=== PATIENT | male | born 1990 | race African-American/Black ===

== ENCOUNTER 2017-08-24 10:38 | Inpatient (IN) | payer SELFPAY ==
[2017-08-24] MEDS ORDERED: Diltiazem HCl 125 MG, Admixture Fee 1 EACH in Sodium Chloride 0.9% 100 ML SLOW IVP SCH (11:45)
[2017-08-24 11:47] LABS: Troponin I 0.025 ng/mL (< 0.028)
--- NOTE | 2017-08-24 12:52 | HP ---
PRIMARY CARE PHYSICIAN: [facility]. REASON FOR ADMISSION: New onset atrial fibrillation with rapid ventricular response, transfer from [facility]. HISTORY OF PRESENT ILLNESS: A 27-year-old -Cub[place] male with no significant medical history who woke up this morning, at that time he was feeling of uneasiness in his chest. He was having palpitations. Even after this, he was able to go to work, but at workplace, he was not feeling good. He was having dizziness, palpitation ongoing and shortness of breath. Patient initially thought that his symptoms could be related with acid reflux and that is why he took Tums and aspirin, but that did not help his symptoms and he was having persistent palpitation and that is why he went to [facility] for evaluation. At [facility], his pulse was 156, irregular. He was found with atrial fibrillation with rapid ventricular response. He was given aspirin and Cardizem bolus and subsequently Cardizem drip was started. With this therapy, his rate was under control, but he was still in atrial fibrillation. The patient was transferred to our hospital for further evaluation and treatment. This patient denies any excessive caffeinated products. He denies any drug abuse. He denies any syncope. He was feeling of uneasiness and vague discomfort in his chest, but he denies any anginal pain. He never had this type of problem in past. He never had any exertional chest pain, palpitation or shortness of breath. He denies any fever. He denies any thyroid disorder. PAST MEDICAL HISTORY: Reviewed and negative. PAST SURGICAL HISTORY: The patient had right leg surgery. PAST PSYCHIATRIC HISTORY: Reviewed and negative. SOCIAL HISTORY: Patient denies any tobacco, alcohol or illicit drug abuse. He is working in oil field. He is doing regular exercise at home. FAMILY HISTORY: His father had heart attack and from heart related problem. No family history of cancer or stroke. ALLERGIES: No known drug allergies. CURRENT HOME MEDICATIONS: The patient is not taking any prescribed or non- prescribed medication. EMERGENCY ROOM COURSE: Patient was given aspirin 325 mg, Cardizem bolus 25 mg and then Cardizem drip was started at [facility]. REVIEW OF SYSTEMS: Please see my HPI for pertinent positives and negatives. All other review of system reviewed and negative except that mentioned in the HPI. Constitutional: Weight loss or gain, ability to conduct usual activities. Skin: Rash, itching. Eyes: Double vision, pain. ENT/Mouth: Nose bleeding, neck stiffness, pain, tenderness. Cardiovascular: Palpitations, dyspnea on exertion, orthopnea. Respiratory: Shortness of breath, wheezing, cough, hemoptysis, fever or night sweats. Gastrointestinal: Poor appetite, abdominal pain, heartburn, nausea, vomiting, constipation, or diarrhea. Genitourinary: Urgency, frequency, dysuria, nocturia. Musculoskeletal: Pain, swelling. Neurologic/Psychiatric: Anxiety, depression. Allergy/Immunologic: Skin rash, bleeding tendency. PHYSICAL EXAMINATION: VITAL SIGNS: On arrival here in our emergency room, blood pressure 152/92, pulse 88 irregular, pulse was 156, irregular at [facility], respiratory rate 18, saturation 100% on room air, weight 93.8 kilograms. GENERAL: Patient is currently alert, awake, in no obvious acute distress. HEENT: Normocephalic, atraumatic. Eyes: Pupils round, reactive to light. Extraocular muscle intact. ENT: Oropharynx within normal limits. Moist mucous membranes. No oral lesions. No pharyngeal erythema. No exudate. NECK: Supple. Range of motion is normal. No meningeal signs of irritation. LUNGS: Clear to auscultation without any rhonchi or rales. CARDIAC: S1, S2 irregularly irregular. No murmur. No gallop. No rub. ABDOMEN: Obesity present. Bowel sounds present, nontender, nondistended. No organomegaly. No mass. No suprapubic tenderness. BACK EXAMINATION: Unremarkable. No CVA tenderness. EXTREMITIES: Upper extremity passive movement of all joints are normal. Lower extremities: No edema. Good peripheral pulsation. SKIN: No skin rash. HEMATOLOGICAL SYSTEM: No lymphadenopathy. NEUROLOGIC: Nonfocal examination. The patient moves all 4 limbs. Plantar bilateral flexor. PSYCHIATRIC: Normal affect. SIGNIFICANT LABS: 1. EKG initially showing atrial fibrillation with RVR and subsequently currently EKG showing atrial fibrillation with controlled ventricular response. 2. CBC: WBC 4.3, hemoglobin 16.1, platelets 207,000 D-dimer less than 0.27. BMP shows sodium 139, potassium 3.5, chloride 104, carbon dioxide 27, BUN 16, creatinine 1.14, glucose 86, calcium 9.9. 3. LFT: AST 19, ALT 22, alkaline phosphatase 51, albumin 4.2. Cardiac enzymes negative x2. BNP less than 10. TSH 1.55. Urine drug screen negative. ASSESSMENT AND PLAN: 1. New onset atrial fibrillation with rapid ventricular response. At this point, etiology unable to determine. His urine drug screen is clear. His TSH is normal. This patient does not have any excessive caffeinated products. He does not have any anginal pain. The patient also does not have any high risk factors for CVA. He does not have any hypertension and diabetes, TIA or stroke. At this point, we will keep this patient in the hospital for admission. We will consult Cardiology. We will obtain echocardiography to assess ejection fraction and other structural abnormality. We will continue the Cardizem drip. We are hoping that he will spontaneously convert back to normal sinus rhythm. If he does not, then he may need a cardioversion. While in hospital, we will continue with Lovenox 1 mg per kg subcutaneous twice daily , but upon discharge based on CHADS2 score, he will need only aspirin therapy. If he converts back to normal sinus rhythm, then we will consider beta-leland or calcium channel leland therapy to prevent atrial fibrillation. This patient will need outpatient followup with Cardiology as well. 2. Obesity. Dietary education given. Healthy lifestyle measures discussed with the patient. 3. Deep venous thrombosis prophylaxis. Patient will be kept on Lovenox 1 mg per kg subcu twice daily. 4. Gastrointestinal prophylaxis. Pepcid 20 mg p.o. b.i.d. 5. Code status: The patient is FULL CODE. Patient does not have any surrogate decision maker. Disposition plan based on clinical course and cardiology recommendation. As this patient also has negative D-dimer, that is why the possibility of thromboembolic disorder is extremely unlikely and will also do serial cardiac enzymes to rule out acute coronary syndrome. He may need a stress test before discharge for ischemic evaluation if needed, and that decision will defer to Cardiology. KD
[2017-08-24] MEDS ORDERED: Enoxaparin Sodium 100 MG/ML SYRINGE ONE (12:55)
[2017-08-24] MEDS ORDERED: Loperamide HCl 2 MG CAP PO PRN (13:24)
[2017-08-24] MEDS ORDERED: Senokot 8.6 MG TAB PO PRN (13:24)
[2017-08-24] MEDS ORDERED: HYDROcodone/Acetaminophen 5/325 mg Tablet PO PRN (13:24)
[2017-08-24] MEDS ORDERED: Eucerin (Mineral Oil/Petrolatum,White) 30 gm Jar TOP PRN (13:24)
[2017-08-24] MEDS ORDERED: Sodium Chloride 0.65% Nasal 44 ML BOT EA NARE PRN (13:24)
[2017-08-24] MEDS ORDERED: Ondansetron ODT 4 MG TAB PO PRN (13:24)
[2017-08-24] MEDS ORDERED: Zolpidem Tartrate 5 MG TAB PO PRN (13:24)
[2017-08-24] MEDS ORDERED: Acetaminophen 325 MG TAB PO PRN (13:24)
[2017-08-24] MEDS ORDERED: Milk Of Magnesia 30 ML UDCUP PO PRN (13:24)
[2017-08-24] MEDS ORDERED: Diabetic Tussin 200 MG/10 ML UDCUP PO PRN (13:24)
[2017-08-24] MEDS ORDERED: Loratadine 10 MG TAB PO PRN (13:24)
[2017-08-24] MEDS ORDERED: Chloraseptic Spray 180 ml Bottle PO PRN (13:24)
[2017-08-24] MEDS ORDERED: Labetalol HCl 100 MG/20 ML VIAL SLOW IVP PRN (13:24)
[2017-08-24] MEDS ORDERED: Mag-Al 1200 mg/1200 mg/30 ML UDCUP PO PRN (13:24)
[2017-08-24] MEDS ORDERED: Artificial Tears 18 DROP/0.9 ML EA EYE PRN (13:24)
[2017-08-24] MEDS ORDERED: Ondansetron HCl/PF 4 MG/2 ML Vial IVP PRN (13:24)
[2017-08-24 15:11] LABS: Troponin I 0.018 ng/mL (< 0.028)
[2017-08-24 15:27] VITALS: BMI 34.7
[2017-08-24 16:31] LABS: Bilirubin Negative (Negative); Blood, Urine Negative (Negative); Glucose, Urine (Dipstick) Negative (Negative); Ketone, Urine Trace mg/dL (Negative); Nitrite Negative (Negative); Protein, Urine (Dipstick) Negative (Neg-Trace)
[2017-08-24 16:34] LABS: Bacteria/HPF None Seen HPF (None Seen); Hyaline Casts/LPF 0-3 HYALINE CAST LPF (0-3 Hyaline); RBC/HPF 0-3 HPF (0-3); Squamous Epithelial None Seen HPF (0-3); WBC/HPF None Seen HPF (0-3)
[2017-08-24 17:58] LABS: Troponin I 0.029 ng/mL (< 0.028)
--- NOTE | 2017-08-24 19:28 | CON ---
DATE OF CONSULTATION: 08/24/2017 REASON FOR CONSULTATION: Atrial fibrillation, rapid ventricular response. HISTORY OF PRESENT ILLNESS: Mr. Deng is a very pleasant 27-year-old -Portuguese gentleman wh o comes to the hospital for not feeling well. He woke up this morning and did not feel well. He we nt to work. 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 He is ju st here for the work and he has got 5 more days to go and then he will go back until September and he comes back. He did not feel good over there, so he decided to come in and he was found to be in at rial fibrillation with RVR. He was started on diltiazem drip for rate control and Cardiology has be en consulted for this. He denies any chest pain, tightness, pressure. No shortness of breath, just palpitations. PAST MEDICAL HISTORY: None. PAST SURGICAL HISTORY: Right leg surgery. SOCIAL HISTORY: No alcohol, tobacco or drugs. Works at the [employer]. Lives with his girlfriend kaylan cain has 4 kids. He exercises regularly and he takes proteins for muscle build. FAMILY HISTORY: Father of an DC in his 50s. OUTPATIENT MEDICATIONS: None. ALLERGIES: No known drug allergies. REVIEW OF SYSTEMS: A 12-point review of systems was done, it is all negative unless stated in the h istory of present illness. PHYSICAL EXAMINATION: VITAL SIGNS: Temperature 98.3, pulse 86, respiration rate 18, satting 100% on room air. Blood pres sure 157/107, recheck is 152/91, diltiazem drip he is in the 117/72. GENERAL: Awake, alert, oriented x3, in no distress. HEENT: Normocephalic, atraumatic. NECK: Supple. LUNGS: Clear. CARDIOVASCULAR: Irregularly, irregular heart rate. Normal S1, S2, no S3 or S4, no murmurs or rubs. ABDOMEN: Soft, positive bowel sounds. EXTREMITIES: No edema. SKIN: Warm and dry. LABORATORY WORK: Reviewed. Troponins have been normal x3. UA was unremarkable. CBC was unremarka ble. D-dimer was normal. BNP was less than assay limit, and metabolic profile was unremarkable. A lbumin was 4.2. TSH is normal at 1.5. EKG was reviewed, AFib, RVR. ASSESSMENT AND PLAN: 1. Atrial fibrillation with rapid ventricular response: New onset. We will plan on rhythm control . We will start him on flecainide 50 mg b.i.d. as well as Eliquis 5 mg b.i.d. in preparation for a [facility] cardioversion tomorrow morning. I have spoken with him at length about both procedures, the ris ks and benefits and he agrees to proceed. 2. Hypertension: Blood pressure is little high. He may be just stressed out from being in the hos pital; however, we will start a beta leland as he needs to be on AV david blocking agent to be on f lecainide as well. Thank you for letting us to participate in the care of your patient. We will follow.
[2017-08-24] MEDS: Apixaban 5 MG TAB PO SCH (20:44)
[2017-08-24] MEDS: Metoprolol Tartrate 25 MG TAB PO SCH (20:44)
[2017-08-24] MEDS: Famotidine 20 MG TAB PO SCH (20:44)
[2017-08-24] MEDS ORDERED: FLU VACC QS2017-18 36 mo. & older 0.5 ML SYRINGE IM ONE (21:00)
[2017-08-24] MEDS ORDERED: Metoprolol Tartrate 25 MG TAB PO SCH (21:00)
[2017-08-24] MEDS ORDERED: Enoxaparin Sodium 80 MG/0.8 ML SYRINGE SC SCH (21:00)
[2017-08-24 22:12] LABS: Hematocrit 50.2 % (42.0-52.0)
[2017-08-25 05:16] LABS: #Eosinphils 0.1 thou/uL (0.0-0.7); #Lymphocytes 1.3 thou/uL (1.20-3.40); #Monocytes 0.5 thou/uL (0.11-0.59); %Basophils 0.9 % (0.0-1.0); %Eosinophils 3.2 % (0.0-10.0); %Lymphocytes 33.4 % (21.0-51.0); %Monocytes 12.7 % (0.0-10.0); Hematocrit 49.8 % (42.0-52.0); Mean Platelet Volume 9.6 fL (7.4-10.4); Red Blood Cell (RBC) Count 5.76 mill/uL (4.70-6.10); White Blood Cell (WBC) Count 3.9 thou/uL (4.8-10.8)
[2017-08-25 05:35] LABS: ALT (SGPT) 14 U/L (8-55); AST (SGOT) 14 U/L (5-34); Alkaline Phosphatase 48 U/L (40-150); Anion Gap 10 mmol/L (10-20); BUN (Urea Nitrogen) 14 mg/dL (8.9-20.6); Bilirubin, Total 0.5 mg/dL (0.2-1.2); Calc. Creatinine Clearance 127 mL/min (70-130); Calcium 10.1 mg/dL (7.8-10.44); Carbon Dioxide 30 mmol/L (22-29); Chloride 103 mmol/L (98-107); Cholesterol 229 mg/dl (< 200 Desired); Estimated GFR-MDRD 90; Globulin 3.4 g/dL (2.4-3.5); LDL Cholesterol, Calculated 163 mg/dL; Protein, Total 7.4 g/dL (6.0-8.3)
[2017-08-25] MEDS: Apixaban 5 MG TAB PO SCH (08:51)
[2017-08-25] MEDS: Metoprolol Tartrate 25 MG TAB PO SCH (08:51)
[2017-08-25] MEDS: Famotidine 20 MG TAB PO SCH (08:51)
[2017-08-25] MEDS ORDERED: Aspirin 325 MG TAB PO SCH (09:00)
[2017-08-25] MEDS ORDERED: FLU VACC QS2017-18 36 mo. & older 0.5 ML SYRINGE IM ONE (09:00)
--- NOTE | 2017-08-25 10:43 | PDOC.CTH ---
Cardiology Progress Note - Subjective He feels well. he converted back to sinus overnight. - Objective Vital Signs Temp Pulse Resp BP Pulse Ox 08/25/17 08:00 98.5 F 78 18 139/77 98 08/25/17 04:00 97.6 F 61 16 139/65 100 08/25/17 00:00 97.7 F 64 16 115/66 97 Weight 210 lb 08/24/17 08/25/17 08/26/17 06:59 06:59 06:59 Intake Total 700 360 Output Total 700 Balance 0 360 - Physical Examination General/Neuro: alert & oriented x3, NAD Neck: carotid US brisk, no JVD present Lungs: CTA, unlabored respirations Heart: RRR Abdomen: NT/ND Extremities: other: (no edema.) - Telemetry Telemetry Rhythm: NSR - Labs Result Diagrams: 08/25/17 04:16 08/25/17 04:16 Troponin/CKMB Troponin I 0.029 ng/mL (< 0.028) H 08/24/17 17:20 - Assessment/Plan 1. Afiv RVR, now in sinus. 2. HTN PLAN: - Continue flecainide and metoprolol. - Continue Eliquis for one month only due to chemical cardioversion and then switch to Aspirin low dose. - May discharge home. - Follow up in 1 month in clinic.
--- NOTE | 2017-08-25 11:26 | DIS ---
DATE OF ADMISSION: 08/24/2017 DATE OF DISCHARGE: 08/25/2017 PRIMARY CARE PHYSICIAN: [facility] call admission. DISCHARGE DISPOSITION: Home. PRIMARY DISCHARGE DIAGNOSES: Atrial fibrillation with rapid ventricular response, converted to normal sinus rhythm, inbreak at onset atrial fibrillation. SECONDARY DISCHARGE DIAGNOSES: Obesity with BMI 34, hypertension, dyslipidemia. PRIMARY PROCEDURE/OPERATION: None. RADIOLOGICAL INVESTIGATION: Chest x-ray was normal. Echocardiography was normal. SIGNIFICANT LABS: WBC 3.9, hemoglobin 15.9, platelets 190. Sodium 139, potassium 3.9, BUN 14 and creatinine 1.16, calcium 10.1. AST 14, ALT 14, alkaline phosphatase 48, albumin 4.0. LDL 163, triglyceride 137, cholesterol 229, HDL 39. Two cardiac enzymes negative and third one was indeterminant range at 0.029. Urinalysis normal. Urine drug screen negative. DISCHARGE MEDICATIONS: Flecainide 50 mg p.o. b.i.d., Eliquis 5 mg p.o. b.i.d. for one month, metoprolol 25 mg p.o. b.i.d. CONTRAINDICATIONS: None. CODE STATUS: FULL CODE. INPATIENT CONSULTANTS: Dr. Stroud was consulted while in hospital. TEST RESULTS PENDING ON DISCHARGE: None. ALLERGIES: No known drug allergies. DISCHARGE PLAN: Post hospital, the patient will follow up with Dr. Stroud in 1 month. HOSPITAL COURSE: A 27-year-old male who was admitted by me yesterday. Please see my HPI for further details. This patient was not feeling good when he woke up; he was feeling palpitations. He went to work and his symptoms had gotten worse and he was also feeling dizziness and some vague chest discomfort. He came to the ER and he was found with atrial fibrillation with RVR. He was treated with Cardizem drip after Cardizem bolus. He was initially evaluated at [facility] and subsequently he was transferred to our hospital for higher level care. We admitted him to telemetry floor. We continued with Cardizem drip. We did echocardiography and consulted Cardiology. Echocardiography was normal. Cardiology started on flecainide and Eliquis therapy. There was plan for cardioversion today if he was in atrial fibrillation, but luckily he was converted to normal sinus rhythm and he did not require any cardioversions. At this point, the patient is given 1-month supply of Eliquis therapy and patient is given only medication prescription. The patient has elevated LDL and that is why I discussed with him option of medical therapy versus diet and exercise. He is to choose diet and exercise modification and then he will see primary care physician to decide about statin therapy if needed. PHYSICAL EXAMINATION: The patient is seen and examined at bedside today. VITAL SIGNS: Currently temperature 98.5, pulse 78, respiratory rate 18, and saturation 98%, blood pressure 139/77, weight 210 pounds. GENERAL: The patient is currently alert, awake, in no acute distress. HEAD: Normocephalic, atraumatic. EYES: Pupils round and reactive to light. Extraocular muscles intact. ENT: Oropharynx within normal limits. Moist mucous membranes. No oral lesions. No pharyngeal erythema. LUNGS: Clear to auscultation without any rhonchi or rales. CARDIAC: S1, S2 regular, without any murmurs. ABDOMEN: Soft and benign. EXTREMITIES: No edema. NEUROLOGIC: Nonfocal examination. I spoke with Dr. Stroud and he cleared him for discharge. Total time spent on discharge day more than 30 minutes. MTDD
[2017-08-25 12:06] VITALS: BP 159/85; TEMP 99
--- NOTE | 2017-08-26 14:48 | EKG ---
Test Reason : Blood Pressure : / mmHG Vent. Rate : 097 BPM Atrial Rate : 091 BPM P-R Int : 000 ms QRS Dur : 090 ms QT Int : 346 ms P-R-T Axes : 000 051 024 degrees QTc Int : 439 ms Atrial fibrillation Abnormal ECG Confirmed by KYA NARAYANAN, ARCHIE Ureña ([id number]), multimedia editor HUGO JORDAN ([id number]) on 08/26/2017 2:48:37 PM Referred By: Confirmed By:ARCHIE BOLAND MD
== END 2017-08-25 13:36 | disposition home or self-care (01) | DRG 310 ==
LOC: ERS 10:38 → 2NO 11:35 → EEVIPCON 11:35
PROVIDERS: ADMIT Internal Medicine; ATTEND Internal Medicine
DX: I48.91 Unspecified atrial fibrillation (principal); I10 Essential (primary) hypertension; E66.9 Obesity, unspecified; E78.00 Pure hypercholesterolemia, unspecified; Z68.34 Body mass index [BMI] 34.0-34.9, adult; Z82.49 Family history of ischemic heart disease and other diseases of the circulatory system
CPT/HCPCS: 36415; 80053; 80061; 81001; 85025; 93005; 93306; 96365; 96372; J1650; J7050